=== PATIENT | female | born 1980 | race Caucasian/White ===

== ENCOUNTER 2024-07-16 23:22 | Inpatient (IN) | payer MEDICARE, OTHER, MEDICAID, SELFPAY ==
[2024-07-16 23:31] VITALS: BMI 31.9
[2024-07-16 23:33] VITALS: BP 129/6; PULSE 112; RESP 20; TEMP 37.3; O2SAT 94
[2024-07-17] MEDS: trazodone 50 mg Tablet PO ×2 (00:27→20:56)
[2024-07-17] MEDS: OLANZapine 5 mg ODT PO (00:27)
--- NOTE | 2024-07-17 03:31 | PC.NURSE ---
Itzel JIN at [facility] contacted in regards to affidavits ([facility] 142) and the witness list ([facility] 137) for completion of 96 Hour Hold paperwork. RN stated that she would follow up with provider and fax papers.
--- NOTE | 2024-07-17 04:13 | PC.ADMIT ---
[address] Admission Note: The patient,Honey Farris,44 y/o, was given written information regarding hospital policies, unit procedures and contact persons. Patient's smoking status: . Vital Signs - 8 hr 07/16/24 23:31 07/16/24 23:33 Temperature 99.2 F Pulse Rate 112 H Respiratory Rate 20 H Blood Pressure 129/6 Pulse Oximetry 94 Oxygen Delivery Method Room Air Room Air Pt arrived to [facility] by stretcher at 2320. Pt was a direct admit from [facility]. Pt states that she is here because she started taking seroquel and it made her crazy. Pt also states that she has been stressed and very anxious recently due to the possibility of her and her sons being kicked out of there home. Pt is calm and cooperative during admission assessment. Pt denies si/hi/avh at this time. 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 Pt states that she is able to due all ADLs on her own and gets around fine with a wheelchair. No other abnormalities were noted during skin assessment. Pt was orientated to the unit and is now observed resting in bed quietly with eyes closed. Behavioral monitoring continues
[2024-07-17 06:00] VITALS: BP 112/77; PULSE 101; RESP 17; TEMP 36.7; O2SAT 96
--- NOTE | 2024-07-17 08:35 | PC.NURSE ---
IN BED RESTING, AROUSES TO VOICE. REPORTS SHE SLEPT WELL LAST NIGHT. PT IS NOTED TO HAVE A ABOVE THE KNEE AMPUTATION AND USES A WHEELCHAIR TO LOCOMOTE AROUND THE UNIT. PT IS ABLE TO COMPLETE HER OWN CARES PERFORMS HER OWN ADLS'S WITH SET UP ASSIST. DENIES PAIN. DENIES SI/HI AND AVH AT THIS TIME. PTS RIGHTS FOR 96 HOUR HOLD WAS GIVEN TO PT WITH EDUCATION PROVIDED. VERBALIZED UNDERSTANDING. PT IS NOTED TO HAVE A FLAT AFFECT, DEPRESSED MOOD AND MILD ANXIETY. RATES ANXIETY AND DEPRESSION 3/10. PT STATES SHE HAS NO GOAL PT WAS ENCOURAGED TO GO TO BREAKFAST, AND DID. ALL QUESTIONS ANSWERED AND SUPPORT WAS VOICED.
[2024-07-17] MEDS: famotidine 20 mg Tablet PO ×2 (09:22→17:33)
[2024-07-17] MEDS: potassium chloride ER 20 mEq Tablet PO ×2 (09:22→17:33)
[2024-07-17] MEDS: TRAMadol 50 mg Tablet PO ×2 (11:40→20:56)
[2024-07-17] MEDS: nicotine 21 mg Patch 1 PATCH TRANSDERMA (11:40)
[2024-07-17] MEDS: loperamide 2 mg Capsule PO (12:00)
[2024-07-17] MEDS: haloperidol 5 mg Tablet PO (13:14)
--- NOTE | 2024-07-17 13:15 | PC.NURSE ---
PT UP AT [facility] REQUESTING VALIUM FOR ANXIETY AND PHANTOM PAIN, PATIENT STATES IT HAS BEEN YEARS SINCE SHE HAS HAD PRESCRIPTION FOR MEDICATION. THIS CHIEF OF ANESTHESIOLOGY OFFERED PT VISTARIL AND ZYPREXIA - PT STATED BOTH MEDICATION GAVE HER INCREASED PHANTOM PAIN. ADMINISTERED PRN HADOL FOR PAIN.
[2024-07-17 14:00] VITALS: BP 110/81; PULSE 95; RESP 16; TEMP 37.4; O2SAT 96
--- NOTE | 2024-07-17 16:43 | P.NPUHP_ITS ---
Providers/Chief Complaint Admitting Physician: Cullen Ely MD Chief Complaint: AVH HPI NPU History of Present Illness Honey Farris is a 44 year old female who presented to the emergency department in [facility] with complaints of auditory hallucinations. The patient had reported that she had been in need of getting medications started and reported a past history of schizophrenia and bipolar disorder. Patient was transferred directly to the neuropsychiatric unit at [facility] for further evaluation and treatment. The patient reports on admission that the voices are repeatedly stating to her that they are coming after her. She had described the voices as sounding like the mafia. The patient had reported that her friends had recently been arrested after a drowning and followed her to her home and somehow knew that they were making methamphetamine. She had reported that she had not been compliant with her medication regimen. She had not endorse depression but stated that she was bothered by the voices that were commanding her and telling her that others were coming after her. 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 She had endorsed a history of humberto but did not elaborate. She reported no change in energy. She had endorsed a history of panic symptoms including shortness of breath and chest pain. She had endorsed a past history of multiple suicide attempts but again did not elaborate. The patient had reported having more problems with mental illness approximately 7 years ago after she had her leg amputated. She reports significant concern with her medical problems and struggles with being compliant with medications. She had also endorsed a history of paranoia. Patient had been positive for opiates on admission. Inpatient relation: She reports multiple hospitalizations over the past 5 to 7 years. Outpatient psychiatric tx: none, prescribed by primary care physician Medical History: Rheumatoid arthritis, lupus, Nephritis, COPD, HTN, hx of amputation above knee, hx of osteomyelitis. 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 She had reported no history of alcohol abuse. She had reported outpatient treatment for substance abuse. Allergies: Penicillin and sulfa drugs Family psychiatric history: None Social History: Patient was born and raised in [place]. She reports that she had a history of special education services. She had stated having obtained her diploma. She had reported having her children at a young age and reported working a variety of jobs in the past. She had denied any history of sexual physical or emotional abuse. She currently lives in [facility] with her 2 sons and she is currently from her for several years. She reports being on disability for her mental and medical illness. The patient was raised by her mother. Meds NPU Home Medications Medication Instructions Recorded Confirmed Last Taken Type doxepin 50 mg capsule 60 mg PO BEDTIME 07/17/24 07/17/24 1 Day Ago History ~07/16/24 famotidine 20 mg tablet 20 mg PO BID 07/17/24 07/17/24 1 Day Ago History ~07/16/24 hydroxyzine pamoate 50 mg capsule 50 mg PO QID PRN Anxiety 07/17/24 07/17/24 1 Day Ago History ~07/16/24 mycophenolate mofetil 500 mg tablet 500 mg PO BID 07/17/24 07/17/24 1 Day Ago History ~07/16/24 paliperidone 9 mg tablet,extended 9 mg PO BEDTIME 07/17/24 07/17/24 1 Day Ago History release 24 hr ~07/16/24 potassium chloride 20 mEq 20 meq PO BID 07/17/24 07/17/24 1 Day Ago History tablet,extended release(part/cryst) ~07/16/24 tramadol 50 mg tablet 50 mg PO QID PRN Pain 07/17/24 07/17/24 1 Day Ago History ~07/16/24 trazodone 50 mg tablet 50 mg PO BEDTIME PRN Insomnia 07/17/24 07/17/24 1 Day Ago History ~07/16/24 Allergies Allergy/AdvReac Type Severity Reaction Status Date / Time clindamycin Allergy ALGY-Rash Verified 07/16/24 23:58 Penicillins Allergy ALGY-Rash Verified 07/16/24 23:58 Mental Status Exam MSE Comments: Overweight woman who appeared her stated age with fair hygiene and abnormal gait as she had right below knee amputation. There was no evidence of any abnormal involuntary motor movements tics or tremors appreciated. The patient had rheumatoid nodules present in her hands bilaterally. Her speech was normal in rate and volume. Her mood was described as anxious. Her affect was blunted. Her thought process was linear logical and goal-directed. Her thought content showed no evidence of homicidal or suicidal ideation at this time. She did not appear at times to be responding to internal stimuli but endorsed an auditory hallucination stating that they are coming after me there was some evidence of delusional thinking. Her attention span was poor. Her recent and remote memory were limited. She was alert and oriented to person place and time. Her insight is poor. Her judgment is poor. Her impulse control appeared limited. Vitals/I&O/Wt Last Vital Signs Temp 99.4 F 07/17/24 14:00 Pulse 95 07/17/24 14:00 Resp 16 07/17/24 14:00 BP 110/81 07/17/24 14:00 Pulse Ox 96 07/17/24 14:00 O2 Del Method Room Air 07/17/24 14:00 Weight last 48 hrs Weight 95.254 kg A&P Assessment and plan (1) Schizophrenia: (2) Bipolar disorder, unspecified: Plan 44-year-old female with likely schizophrenia admitted with complaints of command auditory hallucinations currently noncompliant with her medication regimen with a history of multiple medical problems. #1.? Engage patient in individual milieu and group therapy. #2?? Gabapentin for pain 100mg tid. #3??? Trial of antipsychotic either abilify or latuda. #4?? TO-15 minute checks? #5?? Will attempt to gather collateral information Involuntary Hold Information 96 Hour Hold: 96 Hour Involuntary Admission: No Attestations NPU Medical Necessity Statement*: Inpatient hospitalization is medically necessary and deemed to ?be ?the clinically appropriate intervention ?at this time.? We will monitor/initiate medications and make changes as indicated.? The patient will be in the hospital for over 2 midnights.? The patient?s likely length of stay 7-10 days. Coding Level of Care Code Acute Code for g Fwd Diagnoses Schizophrenia F20.9 Bipolar disorder, unspecified F31.9
[2024-07-17] MEDS: ARIPiprazole 10 mg Tablet PO (17:33)
[2024-07-17] MEDS: hyDROXYzine 25 mg Capsule 50 MG PO (20:57)
[2024-07-17] MEDS: gabapentin 100 mg Capsule PO (20:57)
[2024-07-17 22:00] VITALS: BP 122/85; PULSE 91; RESP 14; TEMP 37.3; O2SAT 95
[2024-07-18 06:00] VITALS: BP 92/61; PULSE 84; RESP 13; TEMP 36.8; O2SAT 92
[2024-07-18] MEDS: gabapentin 100 mg Capsule PO ×3 (09:03→20:22)
[2024-07-18] MEDS: TRAMadol 50 mg Tablet PO ×2 (09:03→20:22)
[2024-07-18] MEDS: potassium chloride ER 20 mEq Tablet PO ×2 (09:03→20:23)
[2024-07-18] MEDS: ARIPiprazole 10 mg Tablet PO (09:03)
[2024-07-18] MEDS: famotidine 20 mg Tablet PO ×2 (09:03→20:23)
[2024-07-18] MEDS: nicotine 21 mg Patch 1 PATCH TRANSDERMA (13:32)
[2024-07-18 14:00] VITALS: BP 136/84; PULSE 94; RESP 17; O2SAT 97
--- NOTE | 2024-07-18 17:06 | P.NPUPN_ITS ---
Subjective NPU Subjective: 44-year-old female with a history of psy chosis with a rule out of schizophrenia or bipolar disorder admitted with command auditory hallucinations. She had continued to report hearing voices. She had remained isolative on the milieu. She reported a history of multiple side effects from medication and stated that she had been laced on Abilify before but was unable to recall the dose. She had stated that her previous dose of Invega up to 9 mg a day had not been helpful with managing her hallucination and paranoia. She had continued to report that a drone from the government was the reason that her family members had been arrested for some illicit activity. She had continued to report that the mafia was trying to harm her. Mental Status Exam MSE Comments: Overweight woman who appeared her stated age with fair hygiene and abnormal gait as she had right below knee amputation in a wheelchair. There was no evidence of any abnormal involuntary motor movements tics or tremors appreciated. The patient had rheumatoid nodules present in her hands bilaterally. Her speech was normal in rate and volume. Her mood was described as okay. Her affect was subdued. Her thought process was linear, logical and goal-directed. Her thought content showed no evidence of homicidal or suicidal ideation at this time. She did not appear at times to be responding to internal stimuli but e ndorsed an auditory hallucination stating that the mafia is coming for me There was some evidence of delusional thinking. Her attention span was poor. Her recent and remote memory were limited. She was alert and oriented to person place and time. Her insight is poor. Her judgment is poor. Her impulse control appeared limited. Vitals/I&O/Wt Last Vital Signs Temp 98.2 F 07/18/24 06:00 Pulse 94 07/18/24 14:00 Resp 17 07/18/24 14:00 BP 136/84 07/18/24 14:00 Pulse Ox 97 07/18/24 14:00 O2 Del Method Room Air 07/18/24 06:00 Weight last 48 hrs Weight 95.254 kg A&P Assessment and plan (1) Schizophrenia: (2) Bipolar disorder, unspecified: Plan 44-year-old female with likely schizophrenia admitted with complaints of command auditory hallucinations currently noncompliant with her medication regimen with a history of multiple medical problems. #1.? Engage patient in individual milieu and group therapy. #2?? Gabapentin for pain 100mg tid. #3??? Abilify 15mg daily. #4?? TO-15 minute checks? #5?? Will attempt to gather collateral information Involuntary Hold Information 96 Hour Hold: 96 Hour Involuntary Admission: No Attestations NPU Medical Necessity Statement*: Inpatient hospitalization is medically necessary and deemed to ?be ?the clinically appropriate intervention ?at this time.? We will monitor/initiate medications and make changes as indicated.? The patient?s likely length of stay 7-10 days. Coding Level of Care Code Acute Code for Chg Fwd Diagnoses Schizophrenia F20.9 Bipolar disorder, unspecified F31.9
[2024-07-18 20:21] VITALS: BP 112/80; PULSE 70; RESP 18; TEMP 37.1; O2SAT 95
[2024-07-18] MEDS: trazodone 50 mg Tablet PO (20:22)
[2024-07-18] MEDS: diphenhydrAMINE 50 mg Capsule PO (22:40)
[2024-07-19 06:00] VITALS: BP 107/75; PULSE 94; RESP 18; TEMP 37.1; O2SAT 97
[2024-07-19] MEDS: nicotine 21 mg Patch 1 PATCH TRANSDERMA (08:51)
[2024-07-19] MEDS: ARIPiprazole 10 mg Tablet 15 MG PO (08:53)
[2024-07-19] MEDS: famotidine 20 mg Tablet PO ×2 (08:54→20:13)
[2024-07-19] MEDS: gabapentin 100 mg Capsule PO ×3 (08:54→20:13)
[2024-07-19] MEDS: potassium chloride ER 20 mEq Tablet PO ×2 (08:57→20:13)
[2024-07-19] MEDS: ondansetron 4 MG Tablet PO (11:54)
[2024-07-19] MEDS: TRAMadol 50 mg Tablet PO ×2 (11:55→20:12)
[2024-07-19 14:00] VITALS: BP 104/78; PULSE 91; RESP 16; TEMP 36.7; O2SAT 98
[2024-07-19] MEDS: fixodent 39 gm Tube 1 APPLIC DENTAL (18:36)
--- NOTE | 2024-07-19 18:58 | W.PM.NPUPNS ---
Subjective NPU Subjective: 44-year-old female with a history of psychosis with a rule out of schizophrenia or bipolar disorder admitted with command auditory hallucinations. The patient continued to report that the voices were prominent. She reported having difficulties with falling asleep. She had not reported any side effects currently from the Abilify. She had reported a history of difficulties with maintaining compliance with her medication regimen. She had continued report that she had felt strongly that a drone had been somehow following her and endorsed having concerned that the drone would follow her here in the hospital. She also reported concern that the mafia was indeed trying to harm her. Mental Status Exam MSE Comments: Overweight woman who appeared her stated age with fair hygiene and abnormal gait as she had right below knee amputation in a wheelchair. There was no evidence of any abnormal involuntary motor movements tics or tremors appreciated. The patient had rheumatoid nodules present in her hands bilaterally. Her speech was normal in rate and volume. Her mood was described as not so good. Her affect was odd and subdued. Her thought process was linear, logical and goal-directed. Her thought content showed no evidence of homicidal or suicidal ideation at this time. She did appear to be responding to internal stimuli but endorsed an auditory hallucination stating that the mafia is searching for me There was some evidence of delusional thinking. Her attention span was poor. Her recent and remote memory were limited. She was alert and oriented to person place and time. Her insight is poor. Her judgment is poor. Her impulse control appeared limited. Vitals/I&O/Wt Last Vital Signs Temp 98.1 F 07/19/24 14:00 Pulse 91 07/19/24 14:00 Resp 16 07/19/24 14:00 BP 104/78 07/19/24 14:00 Pulse Ox 98 07/19/24 14:00 O2 Del Method Room Air 07/19/24 14:00 A&P Assessment and plan (1) Schizophrenia: (2) Bipolar disorder, unspecified: Plan 44-year-old female with likely schizophrenia admitted with complaints of command auditory hallucinations currently noncompliant with her medication regimen with a history of multiple medical problems. #1.? Engage patient in individual milieu and group therapy. #2?? Gabapentin for pain 100mg tid. #3??? continue Abilify 15mg daily. #4?? TO-15 minute checks? #5?? Restoril 15mg at night for insomnia. Involuntary Hold Information 96 Hour Hold: 96 Hour Involuntary Admission: No Attestations NPU Medical Necessity Statement*: Inpatient hospitalization is medically necessary and deemed to ?be ?the clinically appropriate intervention ?at this time.? We will monitor/initiate medications and make changes as indicated.? The patient?s likely length of stay 3-5 days. Coding Level of Care Code Acute Code for Chg Fwd Diagnoses Schizophrenia F20.9 Bipolar disorder, unspecified F31.9
[2024-07-19] MEDS: diphenhydrAMINE 50 mg Capsule PO (20:13)
[2024-07-19] MEDS: trazodone 50 mg Tablet PO (20:13)
[2024-07-19] MEDS: temazepam 15 mg Capsule PO (20:13)
[2024-07-19 20:19] VITALS: BP 99/76; PULSE 99; RESP 18; TEMP 36.8; O2SAT 93
[2024-07-20 06:32] VITALS: BP 107/76; PULSE 78; RESP 16; O2SAT 97
--- NOTE | 2024-07-20 09:10 | PC.NURSE ---
IN BED RESTING. DECLINES GETTING UP TO EAT BREAKFAST. RATES ANXIETY 5/10 AND DEPRESSION 8/10. REPORTS ARM PAIN 3/10. MED NURSE TO GIVE TRAMADOL ORDERED. REPORTS SHE SLEPT OKAY PT IS OBSERVED WITHDRAWN AND ISOLATING TO ROOM, DOES NOT INTERACT WITH STAFF OR PEERS. STATES SHE HAS NO GOAL. DENIES SI/HI AND AVH AT THIS TIME. ALL QUESTIONS ANSWERED AND SUPPORT VOICED.
[2024-07-20] MEDS: TRAMadol 50 mg Tablet PO ×2 (09:37→18:09)
[2024-07-20] MEDS: ARIPiprazole 10 mg Tablet 15 MG PO (09:38)
[2024-07-20] MEDS: gabapentin 100 mg Capsule PO ×2 (09:38→14:29)
[2024-07-20] MEDS: potassium chloride ER 20 mEq Tablet PO ×2 (09:39→20:20)
[2024-07-20] MEDS: famotidine 20 mg Tablet PO (09:39)
[2024-07-20] MEDS: nicotine 21 mg Patch 1 PATCH TRANSDERMA (10:22)
[2024-07-20 14:00] VITALS: BP 114/82; PULSE 91; RESP 17; TEMP 36.8; O2SAT 96
--- NOTE | 2024-07-20 15:13 | P.NPUPN_ITS ---
Subjective NPU Subjective: 44-year-old female with a history of psy chosis with a rule out of schizophrenia or bipolar disorder admitted with command auditory hallucinations. She had continued to endorse auditory hallucinations of a negative nature. She had reported some improvement in sleep. Patient had reported continued worries about being potentially homeless. She had reported having less vivid dreams. Patient had reported having no suicidal thoughts today. Mental Status Exam MSE Comments: Overweight woman who appeared her stated age with fair hygiene and abnormal gait as she had right below knee amputation in a wheelchair. There was no evidence of any abnormal involuntary motor movements tics or tremors appreciated. The patient had rheumatoid nodules present in her hands bilaterally. Her speech was normal in rate and volume. Her mood was described as a little better. Her affect was more tearful today. Her thought process was linear, logical and goal-directed. Her thought content showed no evidence of homicidal or suicidal ideation at this time. She did appear to be responding to internal stimuli but endorsed an auditory hallucination stating that she was being targeted by the mafia. There was some evidence of delusional thinking. Her attention span was poor. Her recent and remote memory were limited. She was alert and oriented to person place and time. Her insight is poor. Her judgment is poor. Her impulse control appeared limited. Vitals/I&O/Wt Last Vital Signs Temp 98.2 F 07/20/24 14:00 Pulse 91 07/20/24 14:00 Resp 17 07/20/24 14:00 BP 114/82 07/20/24 14:00 Pulse Ox 96 07/20/24 14:00 O2 Del Method Room Air 07/19/24 14:00 A&P Assessment and plan (1) Schizophrenia: (2) Bipolar disorder, unspecified: Plan 44-year-old female with likely schizophrenia admitted with complaints of command auditory hallucinations currently noncompliant with her medication regimen with a history of multiple medical problems. #1.? Engage patient in individual milieu and group therapy. #2?? Increase Gabapentin for pain 200mg tid. #3??? continue Abilify 15mg daily. #4?? TO-15 minute checks? #5?? Continue Restoril 15mg at night for insomnia. Involuntary Hold Information 96 Hour Hold: 96 Hour Involuntary Admission: No Attestations NPU Medical Necessity Statement*: Inpatient hospitalization is medically necessary and deemed to ?be ?the clinically appropriate intervention ?at this time.? We will monitor/initiate medications and make changes as indicated.? The patient?s likely length of stay 3-5 days. Coding Level of Care Code Acute Code for Chg Fwd Diagnoses Schizophrenia F20.9 Bipolar disorder, unspecified F31.9
[2024-07-20] MEDS: acetaminophen 325 mg Tablet 650 MG PO (15:27)
[2024-07-20] MEDS: hyDROXYzine 25 mg Capsule 50 MG PO (18:09)
[2024-07-20] MEDS: ondansetron 4 MG Tablet PO (20:19)
[2024-07-20] MEDS: gabapentin 100 mg Capsule 200 MG PO (20:20)
[2024-07-20] MEDS: temazepam 15 mg Capsule PO (20:20)
[2024-07-20] MEDS: trazodone 50 mg Tablet PO (20:20)
[2024-07-20] MEDS: diphenhydrAMINE 50 mg Capsule PO (20:20)
[2024-07-20 20:27] VITALS: BP 111/80; PULSE 60; RESP 18; TEMP 36.8; O2SAT 95
[2024-07-21 05:43] VITALS: BP 82/59; PULSE 75; RESP 16; O2SAT 95
--- NOTE | 2024-07-21 07:51 | PC.NURSE ---
Patient states that she is okay . Patient states that she did not sleep well last night, kept waking up. Patient denies pain. Patient denies anxiety, AVH, depression, SI, HI. Patient withdrawn to room at this time. No questions. No concerns voiced.
[2024-07-21] MEDS: ARIPiprazole 10 mg Tablet 15 MG PO (09:48)
[2024-07-21] MEDS: gabapentin 100 mg Capsule 200 MG PO (09:48)
[2024-07-21] MEDS: famotidine 20 mg Tablet PO ×2 (09:56→20:25)
[2024-07-21] MEDS: potassium chloride ER 20 mEq Tablet PO ×2 (09:56→20:25)
[2024-07-21] MEDS: nicotine 21 mg Patch 1 PATCH TRANSDERMA (10:44)
[2024-07-21] MEDS: hyDROXYzine 25 mg Capsule 50 MG PO (13:16)
[2024-07-21] MEDS: TRAMadol 50 mg Tablet PO ×2 (13:16→20:24)
--- NOTE | 2024-07-21 13:42 | PC.ADMIT ---
[address] Admission Note: The patient,Honey Farris,44 y/o, was given written information regarding hospital policies, unit procedures and contact persons. Patient's smoking status: . Vital Signs - 8 hr 07/21/24 05:43 Pulse Rate 75 Respiratory Rate 16 Blood Pressure 82/59 Pulse Oximetry 95
--- NOTE | 2024-07-21 13:42 | DCPLANNER ---
IMM was printed and rights explained to pt and copy placed in file.
[2024-07-21] MEDS: gabapentin 300 mg Capsule PO ×2 (13:59→20:24)
[2024-07-21 14:00] VITALS: BP 112/78; PULSE 90; RESP 18; TEMP 37.3; O2SAT 97
--- NOTE | 2024-07-21 16:15 | W.PM.NPUDCS ---
Diagnoses at Discharge Discharge Diagnosis (1) Schizophrenia: Status: Acute (2) Bipolar disorder, unspecified: Status: Acute Reason for Visit Reason for Visit: [facility] Brief History: History of Present Illness Honey Farris is a 44 year old female who presented to the emergency department in [facility] with complaints of auditory hallucinations. The patient had reported that she had been in need of getting medications started and reported a past history of schizophrenia and bipolar disorder. Patient was transferred directly to the neuropsychiatric unit at [facility] for further evaluation and treatment. The patient reports on admission that the voices are repeatedly stating to her that they are coming after her. She had described the voices as sounding like the mafia. The patient had reported that her friends had recently been arrested after a drowning and followed her to her home and somehow knew that they were making methamphetamine. She had reported that she had not been compliant with her medication regimen. She had not endorse depression but stated that she was bothered by the voices that were commanding her and telling her that others were coming after her. 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 She had endorsed a history of humberto but did not elaborate. She reported no change in energy. She had endorsed a history of panic symptoms including shortness of breath and chest pain. She had endorsed a past history of multiple suicide attempts but again did not elaborate. The patient had reported having more problems with mental illness approximately 7 years ago after she had her leg amputated. She reports significant concern with her medical problems and struggles with being compliant with medications. She had also endorsed a history of paranoia. Patient had been positive for opiates on admission. Inpatient relation: She reports multiple hospitalizations over the past 5 to 7 years. Outpatient psychiatric tx: none, prescribed by primary care physician Medical History: Rheumatoid arthritis, lupus, Nephritis, COPD, HTN, hx of amputation above knee, hx of osteomyelitis. 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 She had reported no history of alcohol abuse. She had reported outpatient treatment for substance abuse. Allergies: Penicillin and sulfa drugs Family psychiatric history: None Social History: Patient was born and raised in [place]. She reports that she had a history of special education services. She had stated having obtained her diploma. She had reported having her children at a young age and reported working a variety of jobs in the past. She had denied any history of sexual physical or emotional abuse. She currently lives in [facility] with her 2 sons and she is currently from her for several years. She reports being on disability for her mental and medical illness. The patient was raised by her mother. Hospital Course Hospital Course She slowly acclimated to the individual, group and milieu therapies provided. She presented with significant history of personality disorder significant mental health treatment with inpatient and outpatient services history of suicidality. She was very focused on the fact that she had not gotten the help she wanted from [facility] and would not return there and also did not want to start a medication until she was talking with the doctor that was going be following her later. She was on a 96-hour hold and so we monitored her against the backdrop of that hold to identify whether there was credible lethality or not. We did not start any medications during her stay and she had modest improvement. She worked with the social work team to get appropriate outpatient appointments and referrals. She was able to contract for safety outside of the hospital prior to discharge. During the hospitalization, he had routine laboratory studies which were within normal limits except for a few outliers. She does have diabetes and that was treated while she was here with appropriate evaluation for any necessary changes. Additionally a general medical evaluation which was also within normal limits and revealed no new acute processes. At the time of discharge, she denied psychosis or lethality. Her mood and anxiety was well managed. He endorse a plan to avoid all drugs of abuse and follow-up with the treatment team recommendations after discharge. He was evaluated and deemed to be absent compatible lethality, and had achieved the maximum benefit from inpatient hospitalization. So he was discharged. 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 There was no evidence of any abnormal involuntary motor movements tics or tremors appreciated. The patient had rheumatoid nodules present in her hands bilaterally. Her speech was normal in rate and volume. Her mood was described as a little better. Her affect was more tearful today. Her thought process was linear, logical and goal-directed. Her thought content showed no evidence of homicidal or suicidal ideation at this time. She did appear to be responding to internal stimuli but endorsed an auditory hallucination stating that she was being targeted by the mafia. There was some evidence of delusional thinking. Her attention span was poor. Her recent and remote memory were limited. She was alert and oriented to person place and time. Her insight is poor. Her judgment is poor. Her impulse control appeared limited. Discharge Data Vitals: Last Vital Signs Temp 98.3 F 07/20/24 20:27 Pulse 75 07/21/24 05:43 Resp 16 07/21/24 05:43 BP 82/59 07/21/24 05:43 Pulse Ox 95 07/21/24 05:43 O2 Del Method Room Air 07/19/24 14:00 Discharge Plan Discharge Patient Disposition: Home Prescriptions: New aripiprazole 15 mg tablet 15 mg PO DAILY 30 Days Qty: 30 1RF temazepam 15 mg Capsule 15 mg PO BEDTIME 30 Days Qty: 30 1RF gabapentin 300 mg Capsule 300 mg PO TID 30 Days Qty: 90 1RF Continued famotidine 20 mg tablet 20 mg PO BID potassium chloride 20 mEq tablet,ER particles/crystals 20 meq PO BID tramadol 50 mg tablet 50 mg PO QID PRN (Reason: Pain) mycophenolate mofetil 500 mg tablet 500 mg PO BID Rx Instructions: take two tablets by mouth twice daily trazodone 50 mg tablet 50 mg PO BEDTIME PRN (Reason: Insomnia) 30 Days Qty: 30 1RF hydroxyzine pamoate 50 mg capsule 50 mg PO QID PRN (Reason: Anxiety) 30 Days Qty: 120 1RF Discontinued doxepin 50 mg capsule 60 mg PO BEDTIME paliperidone 9 mg tablet extended release 24 hr 9 mg PO BEDTIME Discharge Orders: Discharge Order (Routine); Ordered 07/21/24 Ordered By: Cullen Ely Referrals: [facility] [Other] (Intake to finish paperwork Wednesday through Wednesday 8:00 am -12:00 pm. ) [facility]- Dr. Artie Call MD. [Other] - 07/27/24 2:30 pm (Follow up) Discharge Diet: Regular Discharge Activity: Resume usual activity Patient Instructions: Opioid Safety Discharge Attestations NPU Time Spent in Discharge Care*: less than 30 min Specific Discharge Activities: Specific discharge activities: educating patient, discussing with binder caser/social workers/dc planners, documenting/other paperwork and evaluating patient/reviewing data Coding Level of Care Code Acute Code for Chg Fwd Diagnoses Schizophrenia F20.9 Bipolar disorder, unspecified F31.9
--- NOTE | 2024-07-21 18:40 | PC.NURSE ---
MEDS TO BED, ONE BAG OF MEDICATIONS DROPPED OFF BY PHARMACY. THIS NURSE PLACED MEDS IN PYXIS AND LEFT NOTE ON CHART REMINDER.
--- NOTE | 2024-07-21 18:41 | PC.NURSE ---
[facility] WORKER NAMED YIFAN CALLED AT 1700 STATING THAT THEY ARE UNABLE TO FIND PATIENT TRANSPORTATION FROM HOSPITAL TO HER HOME. THEY STATED THAT THE SEARCH FOR A RIDE WILL RESUME ON WEDNESDAY. BOARD TURNER AND DR. BANKS MADE AWARE OF SITUATION.
[2024-07-21] MEDS: trazodone 50 mg Tablet PO (20:25)
[2024-07-21] MEDS: temazepam 15 mg Capsule PO (20:25)
[2024-07-21] MEDS: diphenhydrAMINE 50 mg Capsule PO (20:25)
[2024-07-21 21:29] VITALS: BP 108/76; PULSE 109; RESP 18; TEMP 37.4; O2SAT 94
--- NOTE | 2024-07-21 22:36 | PC.NURSE ---
Patient moved to a different room so we could utilize a bed for a different patient.
[2024-07-22 06:00] VITALS: BP 105/73; PULSE 82; RESP 16; O2SAT 95
[2024-07-22 06:07] VITALS: BP 108/76; PULSE 80; RESP 18; TEMP 37.4; O2SAT 94
== END 2024-07-22 07:18 | disposition home or self-care (01) | DRG 885 ==
PROVIDERS: Admitting Provider Psychiatry & Neurology Psychiatry; Visit Provider Psychiatry & Neurology Psychiatry
DX: F20.9 Schizophrenia, unspecified (principal); F31.9 Bipolar disorder, unspecified; M06.9 Rheumatoid arthritis, unspecified; J44.9 Chronic obstructive pulmonary disease, unspecified; I10 Essential (primary) hypertension; G47.00 Insomnia, unspecified; M32.14 Glomerular disease in systemic lupus erythematosus; Z91.51 Personal history of suicidal behavior; Z91.148 Patient's other noncompliance with medication regimen for other reason; Z63.5 Disruption of family by separation and divorce; Z79.899 Other long term (current) drug therapy; Z88.0 Allergy status to penicillin; Z88.1 Allergy status to other antibiotic agents; Z89.511 Acquired absence of right leg below knee
CPT/HCPCS: 97150; 97165; J7517; Q0162; Q0163